=== PATIENT | female | born 1960 | race Caucasian/White ===

== ENCOUNTER → 2016-08-30 | Outpatient (CLI) | payer BC, OTHER | LOC: MC.RAD 15:48 | DX: Z12.31 Encounter for screening mammogram for malignant neoplasm of breast (principal); R92.1 Mammographic calcification found on diagnostic imaging of breast ==

== ENCOUNTER → 2017-09-15 | Outpatient (CLI) | payer BC, OTHER | LOC: MC.RAD 09-04 14:40 | DX: Z12.31 Encounter for screening mammogram for malignant neoplasm of breast (principal) ==

== ENCOUNTER → 2018-11-05 | Outpatient (CLI) | payer BC, OTHER | LOC: MC.RAD 14:30 | DX: Z12.31 Encounter for screening mammogram for malignant neoplasm of breast (principal) ==

== ENCOUNTER 2022-04-06 05:59 | Emergency (ER) | payer BC, OTHER ==
[~2022-04-06] VITALS: Ht 152.4 cm; Wt 80.5 kg
[2022-04-06 06:08] VITALS: TEMP 97.9
[2022-04-06] MEDS ORDERED: PRINIVIL20 MG PO (06:23)
[2022-04-06] MEDS ORDERED: WELLBUTRIN SR150 M1 PO (06:23)
[2022-04-06] MEDS ORDERED: ZYRTEC 10MG10 MG PO (06:24)
[2022-04-06 06:36] LABS: BASO % 0.6 % (0.0-2.0); EOS # 0.1 K/mm3 (0.0-0.7); EOS % 3.3 % (0.0-4.0); GRAN # 1.2 K/mm3 (1.4-6.5); GRAN % 34.2 % (42.2-75.2); HEMATOCRIT 39.7 % (37.0-47.0); HEMOGLOBIN 12.7 g/dl (12.5-16.0); LYMPH # 1.8 K/mm3 (1.2-3.4); LYMPH % 48.6 % (20.0-51.0); MEAN CELL VOLUME 88 fl (80.0-100.0); MEAN CORPUSCULAR HEMOGLOBIN 28 pg (27-31); MEAN CORPUSCULAR HGB CONC 32 g/dl (33.0-37.0); MEAN PLATELET VOLUME 10.8 fl (7.4-10.4); MONO # 0.4 K/mm3 (0.1-0.6); MONO % 12.2 % (1.7-9.3); PLATELET COUNT 214 K/mm3 (130-400); RED BLOOD COUNT 4.52 M/mm3 (4.10-5.30); REDCELL DISTRIBUTION WIDTH-CV 13.6 % (11.5-14.5)
[2022-04-06 06:37] LABS: ALBUMIN 3.7 gm/dL (3.4-4.8); BILIRUBIN,TOTAL 0.3 mg/dL (0.2-1.2); CALCIUM 9.9 mg/dL (8.4-10.2); CREATININE, serum 1.11 mg/dL (0.57-1.11); POTASSIUM 4.2 mmol/L (3.5-4.5); TOTAL PROTEIN 7.1 gm/dL (6.2-8.1)
[2022-04-06 06:43] LABS: TROPONIN-I 0.01 ng/mL (0.00-0.033)
[2022-04-06 09:30] VITALS: BP 131/65; PULSE 61
== END 2022-04-06 09:55 | disposition home or self-care (01) ==
LOC: COL.ER 05:59
PROVIDERS: Emergency Medicine
DX: R07.89 Other chest pain (principal); Z87.891 Personal history of nicotine dependence